=== PATIENT | male | born 1990 | race African-American/Black ===

== ENCOUNTER 2021-03-31 12:41 | Emergency (ER) | payer OTHER ==
[~2021-03-31] VITALS: Ht 182.9 cm; Wt 104.3 kg
--- NOTE | ~2021-03-31 | EMS ---
[address] [address] EMS Patient Care Report Name: MORGAN VU Room #: DEP LEONOR Beth#: [id number] Admission: 03/31/21 Attend Phys: Discharge: 03/31/21 Date of : [birth year] Report #: [id number] THIS REPORT FOR: //name// Report Transmitted: 04/02/2021 10:49 EMS Care Summary [place], [place]/[facility] Incident [id number] @ 03/31/2021 11:52 Incident Location [id number] [facility] Patient MORGAN ARMSTRONG Male, 31 Years 1990 Patient Address [address] [place], [place] [id number] Patient History Depression,Alcohol Abuse,Constipation,Paranoid Schizophrenia, Patient Allergies No known allergies, Patient Medications Lisinopril, Albuterol, Propranolol, Trazodone, Topiramate, Valproic Acid, Omeprazole, Ondansetron, Meclizine, Acetaminophen, Olanzapine, Chief Complaint ABDOMINAL PAIN; NO BOWEL MOVEMENTS Disposition Transported No Lights/[place] Dispatch Reason Sick Person Transported To [facility] Narrative M30 RESPONDED TO A SICK CALL. M30 ARRIVED ON SCENE TO FIND PT IN [facility] WITH [facility]ENTER STAFF. STAFF ADVISED CREW THAT PT HADNT HAD A BOWEL MOVEMENT IN A [address] [address] EMS Patient Care Report Name: MORGAN VU Room #: DEP [facility]#: [id number] Admission: 03/31/21 Attend Phys: Discharge: 03/31/21 Date of : [birth year] Report #: [id number] FEW DAYS AND HE WAS SUFFERING FROM ABDOMINAL PAIN DUE TO THAT WELL "IRREGULAR VITAL SIGNS". PT WAS ASSESSED AND DEEMED BLS. PT WAS ASSISTED IN SITTING ON STRETCHER THEN SECURED VIA SEATBELTS AND HANDRAILS. PT STATED HE WAS CURRENTLY IN NO PAIN BUT HADNT HAD A BOWEL MOVEMENT. VITALS WERE REASSESSED IN THE AMBULANCE AND REMAINED IN NORMAL LIMITATIONS WITH NO CHANGE IN PT CONDITION. PT WAS REASSESSED DURING TRANSPORT. PT WAS TRANSFERED INTO [facility] SECURED TO THE STRETCHER. PT WAS LEFT IN A HOSPITAL BED WITH HANDRAILS UP, REPORT WAS GIVEN TO NURSING STAFF. M30 RETURNED TO [facility]. Initial Vitals @12:17P: 101,R: 16,BP: 111/69,Pain: 0/10,SpO2: 100, @PTAR: 16,BP: 98/78,Pain: 0/10,GCS: 15,SpO2: 100,Revised Trauma: 12, Assessments @12:25MENTAL:Event Oriented,Time Oriented,Place Oriented,Person Oriented,SKIN:HEENT:Head/Face: No Abnormalities,Eyes: No Abnormalities,Neck/Airway: No Abnormalities,LUNG SOUNDS:Left Lower: [place],Right Lower: [place],General: No Abnormalities,Left Upper: No Abnormalities,Right Upper: No Abnormalities,ABDOMEN:Left Lower: [place],Right Lower: [place],General: No Abnormalities,Left Upper: No Abnormalities,Right Upper: No Abnormalities,PELVIS//GI:Pelvis GUOther,EXTREMITIES:Left Arm: No Abnormalities,Right Arm: No Abnormalities,Left Leg: No Abnormalities,Right Leg: No Abnormalities,PULSE:NEURO:No Abnormalities, Impression Abdominal Pain Procedures @12:21ALS AssessmentSucceeded@12:21BLS AssessmentResponse: Unchanged Timeline [employer]OVER,BP: 98/78 M,PULSE: ,RR: 16 R,SPO2: 100 Ox,ETCO2: ,BG: ,PAIN: 0,GCS: 15, 11:50,Call Received 11:50,Dispatch Notified 11:52,Dispatched 11:53,En Route 12:15,On Scene 12:16,At Patient 12:17,BP: 111/69 M,PULSE: 101,RR: 16 R,SPO2: 100 Ox,ETCO2: ,BG: ,PAIN: 0,GCS: , 12:21,ALS Assessment,Succeeded, 12:21,BLS Assessment,Response: Unchanged 12:24,Depart Scene 12:47,At Destination 12:51,Call Closed Disclaimer [address] [address] EMS Patient Care Report Name: MORGAN VU Room #: DEP LEONOR Beth#: [id number] Admission: 03/31/21 Attend Phys: Discharge: 03/31/21 Date of : 86 Report #: [id number] v1.1 Copyright 2020 [employer] This EMS Care Summary contains data elements from the applicable legal record (which may be displayed differently). It is designed to provide pertinent information for the following purposes: continuity of care, clinical quality, and state data reporting. The complete legal record is available to ED staff and administrators of the receiving hospital in [employer] Patient Tracker. All data is provided "as is."
[~2021-03-31 12:41] MED LIST: ATIVAN1 MG PO; CLOZAPINE50 MG PO; HALOPERIDOL 1 MG PO; PROPRANOLOL 1010 M1 PO; RISPERDAL M-TAB1 MG PO; VENLAFAXINE HCL25 MG PO
[2021-03-31 12:51] VITALS: BP 126/85
== END 2021-03-31 13:38 ==
LOC: ER 12:41
DX: K59.00 Constipation, unspecified (principal); R10.84 Generalized abdominal pain; F20.9 Schizophrenia, unspecified; F32.9 Major depressive disorder, single episode, unspecified; Z79.899 Other long term (current) drug therapy